=== PATIENT | male | born 1995 | race Caucasian/White ===

== ENCOUNTER 2023-03-22 10:23 | Emergency (ER) | payer OTHER ==
[~2023-03-22] VITALS: Ht 185.4 cm; Wt 120.2 kg
[~2023-03-22 10:23] MED LIST: IBUP600 PO; Norco 5-325 Ta1 EACH PO
[2023-03-22 10:41] VITALS: BP 140/89
[2023-03-22] MEDS ORDERED: CYCL10 PO (12:38)
[2023-03-22] MEDS ORDERED: Roxicodone5 MG PO (12:38)
== END 2023-03-22 14:42 | disposition home or self-care (01) ==
LOC: ER 10:23
DX: M54.50 Low back pain, unspecified (principal); W22.8XXA Striking against or struck by other objects, initial encounter
CPT/HCPCS: 71046; 71250; 72070; 72100; 96372; 99284-25; A9270; J1170; J1885

== ENCOUNTER 2025-04-16 16:22 | Emergency (ER) | payer BC ==
[~2025-04-16] VITALS: Ht 185.4 cm; Wt 111.1 kg
[~2025-04-16 16:22] MED LIST changes: +CYCL10 PO; +OMEP20ER PO; +ONDA4ODT MM; +Roxicodone5 MG PO
[2025-04-16] MEDS ORDERED: NS 1,000 ML IV SCH (16:55)
[2025-04-16] MEDS ORDERED: Ondansetron HCl 2 MG / ML 2ML Vial IV ONE (16:55)
[2025-04-16 17:13] LABS: BASOPHILS ABSOLUTE AUTO 0.06 K/mm3 (0.00-0.23); BASOPHILS PERCENT AUTO 1 % (0-2); EOSINOPHILS ABSOLUTE AUTO 0.03 K/mm3 (0.00-0.68); EOSINOPHILS PERCENT AUTO 0 % (0-6); Hematocrit 50.8 % (37.0-53.0); Hemoglobin 17.2 g/dL (13.5-17.5); IMMATURE GRAN ABSOLUTE AUTO 0.02 K/mm3 (0.00-0.10); IMMATURE GRAN PERCENT AUTO 0 % (0-1); LYMPHOCYTES ABSOLUTE AUTO 1.94 K/mm3 (0.84-5.20); LYMPHOCYTES PERCENT AUTO 19 % (21-46); MONOCYTES ABSOLUTE AUTO 1.12 K/mm3 (0.16-1.47); MONOCYTES PERCENT AUTO 11 % (4-13); Mean Corpuscular HGB Conc 33.9 g/dL (31.5-36.5); Mean Corpuscular Volume 87 fL (80-100); NEUTROPHILS ABSOLUTE AUTO 7.01 K/mm3 (1.96-9.15); NEUTROPHILS PERCENT AUTO 69 % (41-73); NRBC ABSOLUTE 0.00 K/mm3 (0.00-0.02); NRBC Auto 0.0 /100 WBC (0.0-0.2); Platelet Count 335 K/mm3 (150-400); RDW Coefficient Variation 12.1 % (11.7-14.2); RDW Standard Deviation 38.5 fL (35.1-46.3)
[2025-04-16 17:29] LABS: Alanine Aminotransfer (ALT/SGP 64.0 U/L (12-78); Albumin, Blood 5.2 g/dL (3.4-5.0); Albumin/Globulin Ratio 1.3 (0.8-1.8); Anion Gap 9.0 mmol/L (3-11); Aspartate Aminotrans (AST/SGOT 42.0 U/L (12-37); Bilirubin, Total 1.4 mg/dL (0.1-1.0); Blood Urea Nitrogen 20.0 mg/dL (8-24); CO2, Blood 30.0 mmol/L (21-32); Calcium, Blood 10.4 mg/dL (8.5-10.1); Chloride, Blood 99.0 mmol/L (98-108); Creatinine, Blood 1.12 mg/dL (0.60-1.20); Globulin, Blood 4.1 g/dL (2.2-4.0); Glucose, Blood 111.0 mg/dL (70-99); Potassium, Blood 3.5 mmol/L (3.5-5.5); Sodium, Blood 134.0 mmol/L (136-145); Total Protein, Blood 9.3 g/dL (6.4-8.2)
[2025-04-16] MEDS ORDERED: Ketorolac Tromethamine 15mg Vial IV ONE (19:10)
[2025-04-16 19:29] VITALS: BP 148/71
== END 2025-04-16 20:06 | disposition home or self-care (01) ==
LOC: ER 16:22
PROVIDERS: Student in an Organized Health Care Education/Training Program
DX: R10.32 Left lower quadrant pain (principal); R11.2 Nausea with vomiting, unspecified; E87.1 Hypo-osmolality and hyponatremia; R17 Unspecified jaundice
CPT/HCPCS: 76770; 80053; 85025; 96374; 96375; 99284-25; J1790; J1885; J2405; J7030